=== PATIENT | female | born 1980 | race African-American/Black ===

== ENCOUNTER 2021-01-26 15:19 | Inpatient (IN) | payer MEDICAID ==
[~2021-01-26] VITALS: Ht 172.7 cm; Wt 79.4 kg
[2021-01-26 16:27] LABS: BASOPHILS % 0.3 % (0.0-2.0); EOSINOPHILS % 3.6 % (0.0-5.0); LYMPHOCYTES % 26.8 % (20.0-50.0); MEAN CORPUSCULAR HEMOGLOBIN 16.8 pg (28.0-32.0); MEAN PLATELET VOLUME 9.1 fl (7.4-10.4); MONOCYTES % 8.3 % (2.0-8.0); PLATELET 332 x1000/uL (130-400); RED BLOOD CELL COUNT 3.46 mill/uL (4.2-5.4); RED CELL DISTRIBUTION WIDTH 23.1 % (11.6-14.6)
[2021-01-26 16:32] LABS: CHLORIDE 116 mEq/L (98-107)
[2021-01-26 16:35] LABS: HEMATOCRIT. 20.1 % (36.0-48.0); HEMOGLOBIN. 5.8 g/dL (12.0-16.0)
[2021-01-26 16:36] LABS: HCG SCREEN NEGATIVE
[2021-01-26 17:25] LABS: CLARITY URINE CLEAR (CLEAR); COLOR URINE YELLOW (YELLOW); KETONES URINE TRACE (NEGATIVE); LEUKOCYTE ESTERASE URINE NEGATIVE (NEGATIVE); NITRITE URINE NEGATIVE (NEGATIVE); OCCULT BLOOD URINE NEGATIVE (NEGATIVE); PROTEIN URINE NEGATIVE (NEGATIVE)
[2021-01-26] MEDS ORDERED: DEXT 5%/0.9% NACL 1,000 ML IV ONE (17:30)
[2021-01-26] MEDS ORDERED: ACETAMINOPHEN 325MG TABLET PO ONE (17:30)
[2021-01-26 19:33] LABS: PLATELET ESTIMATE NORMAL
[2021-01-26] MEDS ORDERED: ONDANSETRON HCL 4MG/2ML INJ IV ONE (20:45)
[2021-01-26 23:10] VITALS: BP 101/60
[2021-01-26] MEDS ORDERED: FLUO10CA25 PO (23:55)
[2021-01-26] MEDS ORDERED: HYDR-3735 PO (23:55)
[2021-01-26] MEDS ORDERED: ONDA4TAB5 PO (23:55)
[2021-01-26] MEDS ORDERED: HYDR200T80 PO (23:55)
[2021-01-26] MEDS ORDERED: CLON0.5T4 PO (23:55)
[2021-01-26] MEDS ORDERED: FERR324T4 PO (23:55)
[2021-01-26] MEDS ORDERED: PRED10TA PO (23:55)
[2021-01-27] MEDS ORDERED: MAGNESIUM/ALUMINUM HYDROXIDE/SIMETHICONE 30ML UDC PO PRN (00:15)
[2021-01-27] MEDS ORDERED: ONDANSETRON HCL 4MG/2ML INJ IV PRN (00:15)
[2021-01-27] MEDS ORDERED: ACETAMINOPHEN 325MG TABLET PO PRN ×2 (00:15)
[2021-01-27] MEDS ORDERED: ZOLPIDEM TARTRATE 5MG TABLET PO PRN (00:15)
[2021-01-27 00:43] LABS: HEMATOCRIT 27.5 % (36.0-48.0); HEMOGLOBIN 8.3 g/dL (12.0-16.0)
[2021-01-27 00:55] LABS: TOTAL IRON BINDING CAPACITY 410 ug/dL (250-450)
[2021-01-27] MEDS: SODIUM CHLORIDE 0.9% 1,000 ML IV SCH ×2 (01:10→12:10)
[2021-01-27] MEDS ORDERED: IRON SUCROSE COMPLEX 100 MG/5 ML ML IV NR (03:00)
[2021-01-27 04:00] VITALS: BP 96/53
[2021-01-27 06:58] LABS: HEMATOCRIT 28.9 % (36.0-48.0); HEMOGLOBIN 8.4 g/dL (12.0-16.0); MEAN CORPUSCULAR HEMOGLOBIN 17.5 pg (28.0-32.0); MEAN CORPUSCULAR VOLUME 59.9 fL (81.0-99.0); PLATELET 367 x1000/uL (130-400); RED BLOOD CELL COUNT 4.83 mill/uL (4.2-5.4); RED CELL DISTRIBUTION WIDTH 25.9 % (11.6-14.6)
[2021-01-27] MEDS ORDERED: PREDNISONE 10MG TABLET PO SCH (09:00)
[2021-01-27 12:00] VITALS: BP 97/57
[2021-01-27 12:22] VITALS: BP 110/56
== END 2021-01-27 14:37 | disposition home or self-care (01) | DRG 48 ==
LOC: ER 15:19 → ENRESERV 22:35 → 6WST 23:22
PROVIDERS: ADMIT Internal Medicine; ATTEND Internal Medicine
PROC: 30233N1 Transfusion of Nonautologous Red Blood Cells into Peripheral Vein, Percutaneous Approach (ICD-10-PCS; principal; 2021-01-26)
DX: G90.9 Disorder of the autonomic nervous system, unspecified (principal); M32.9 Systemic lupus erythematosus, unspecified; D57.1 Sickle-cell disease without crisis; D64.9 Anemia, unspecified; F17.200 Nicotine dependence, unspecified, uncomplicated; Z82.49 Family history of ischemic heart disease and other diseases of the circulatory system; Z83.3 Family history of diabetes mellitus; Z79.899 Other long term (current) drug therapy; Z90.49 Acquired absence of other specified parts of digestive tract; E61.1 Iron deficiency
CPT/HCPCS: 36415; 71045; 80053; 81003; 83540; 83550; 83880; 84484; 84703; 85014; 85018; 85025; 85027; 86850; 86900; 86920; 93005; 99291; J7042; J7512; P9016

== ENCOUNTER 2021-04-25 17:31 | Emergency (ER) | payer MEDICAID, OTHER ==
[~2021-04-25] VITALS: Ht 172.7 cm; Wt 70.0 kg
[~2021-04-25 17:31] MED LIST: CLON0.5T4 PO; FERR324T4 PO; FLUO10CA25 PO; HYDR-3735 PO; HYDR200T80 PO; ONDA4TAB5 PO; PRED10TA PO
[2021-04-25 17:50] VITALS: BP 129/78
== END 2021-04-25 19:35 | disposition left against medical advice (07) ==
LOC: ER 17:31
DX: N93.9 Abnormal uterine and vaginal bleeding, unspecified (principal); D64.9 Anemia, unspecified; M32.9 Systemic lupus erythematosus, unspecified
CPT/HCPCS: 99283